=== PATIENT | female | born 1980 | race Caucasian/White ===

== ENCOUNTER 2018-12-13 11:06 | Emergency (ER) | payer SELFPAY ==
--- NOTE | 2018-12-13 11:57 | Emergency Department Report ---
Blank Doc - Documentation Documentation: This is a 38-year-old female that presents with abdominal pain with nausea vom iting x1 day. Stated is diffuse. This initial assessment diagnostic orders/clinical plan/treatment(s) is/are subject to change based on patient's health status, clinical progression and re-assessment by fellow clinical providers in the ED. Further treatment and workup at subsequent clinical providers discretion. Patient/guardians urged not to elope from ED s their condition may be serious if not clinically assessed and managed. Initial orders include: 1-Patient sent to [facility] for further evaluation and treatment 2- Labs 3- UA
[2018-12-13] MEDS ORDERED: ZOFRAN IV ONE (12:22)
[2018-12-13] MEDS ORDERED: NACL 0.9% 1000 ML 1,000 ML IV ONE (12:22)
[2018-12-13] MEDS ORDERED: TYLENOL PO ONE (12:23)
--- NOTE | 2018-12-13 12:30 | Emergency Department Report ---
HPI <JOIE MITCHELL - Last Filed: 12/13/18 18:33> - HPI HPI: 38-year-old female presents to the emergency department with a complaint of a one-day history of generalized abdominal pain, nausea, vomiting and a headache. She denies any fever, dysuria, vaginal bleeding or discharge. She has not taken anything for her symptoms prior to presentation. She went to a urgent care clinic this morning and was told to come to the emergency department. No past medical history. No recent travel or sick contacts at home. <LESIA CONWAY S - Last Filed: 12/14/18 16:10> - General Chief Complaint: Abdominal Pain Time Seen by Provider: 12/13/18 11:55 ED Past Medical Hx <PAULAJOIE - Last Filed: 12/13/18 18:33> - Past Medical History Previous Medical History?: No - Surgical History Past Surgical History?: Yes Additional Surgical History: x 3 - Social History Smoking Status: Never Smoker Substance Use Type: None <LESIA CONWAY - Last Filed: 12/14/18 16:10> - Medications Home Medications: Home Medications Medication Instructions Recorded Confirmed Last Taken Type Amoxicillin [Amoxicillin TAB] 875 mg PO BID 10 Days tablet 01/02/14 Unknown Rx HYDROcodone/APAP 5-325 [[place] 1 each PO Q6HR PRN #10 tablet 01/02/14 Unknown Rx 5-325 mg TAB] Ketorolac [Toradol] 10 mg PO Q6H PRN #10 tablet 12/13/18 Unknown Rx Nitrofurantoin Monohyd/M-Cryst 100 mg PO BID #14 capsule 12/13/18 Unknown Rx [Macrobid 100 mg Capsule] Ondansetron [Zofran Odt] 4 mg PO Q8HR PRN #12 tab.rapdis 12/13/18 Unknown Rx ED Review of Systems ROS: Stated complaint: N/V Other details as noted in HPI <PAULARANDMACRINA - Last Filed: 12/13/18 18:33> ROS: Stated complaint: N/V Other details as noted in HPI Comment: All other systems reviewed and negative Constitutional: denies: chills, fever Eyes: denies: eye pain, vision change ENT: denies: ear pain, throat pain Respiratory: denies: cough, shortness of breath Cardiovascular: denies: chest pain, palpitations Gastrointestinal: abdominal pain, nausea, vomiting Genitourinary: denies: dysuria, discharge Musculoskeletal: denies: back pain, arthralgia Skin: denies: rash, lesions Neurological: headache. denies: weakness, numbness, paresthesias <LESIA CONWAY - Last Filed: 12/14/18 16:10> Physical Exam - Physical Exam Vital Signs: Vital Signs 12/13/18 11:56 Temperature 98.3 F Pulse Rate 77 Respiratory 18 Rate Blood Pressure 119/50 O2 Sat by Pulse 97 Oximetry <JOIE MITCHELL - Last Filed: 12/13/18 18:33> - Physical Exam Vital Signs: Vital Signs 12/13/18 11:56 Temperature 98.3 F Pulse Rate 77 Respiratory 18 Rate Blood Pressure 119/50 O2 Sat by Pulse 97 Oximetry Physical Exam: GENERAL: The patient is well-developed well-nourished. HEENT: Normocephalic. Atraumatic. Patient has moist mucous membranes. EYES: Extraocular motions are intact. Pupils are equal and reactive to light bilaterally. No nystagmus. NECK: Supple. Trachea is midline. CHEST/LUNGS: Clear to auscultation. There is no respiratory distress noted. HEART/CARDIOVASCULAR: Regular. There is no tachycardia. There is no obvious murmur. ABDOMEN: Abdomen is soft. Generalized tenderness to palpation of the abdomen. No guarding. Patient has normal bowel sounds. There is no abdominal distention. SKIN: Skin is warm and dry. NEURO: The patient is awake, alert, and oriented. The patient is cooperative. The patient has no focal neurologic deficits. The patient has normal speech. Cranial nerves II through XII grossly intact. MUSCULOSKELETAL: There is no tenderness or deformity. There is no limitation range of motion. There is no evidence of acute injury. <LESIA CONWAY - Last Filed: 12/14/18 16:10> ED Course Vital Signs 12/13/18 11:56 Temperature 98.3 F Pulse Rate 77 Respiratory 18 Rate Blood Pressure 119/50 O2 Sat by Pulse 97 Oximetry <JOIE MITCHELL - Last Filed: 12/13/18 18:33> Vital Signs 12/13/18 11:56 Temperature 98.3 F Pulse Rate 77 Respiratory 18 Rate Blood Pressure 119/50 O2 Sat by Pulse 97 Oximetry <SHEAR,LESIA S - Last Filed: 12/14/18 16:10> ED Medical Decision Making - Lab Data Result diagrams: 12/13/18 13:32 12/13/18 13:32 - Radiology Data Radiology results: report reviewed (CT scan of the head shows possible prior myelomatous disease process. No acute process noted. No acute processes noted to the abdomen as well as a CT scan.) - Medical Decision Making 30-year-old female with headache seen by Dr. blank. Follow-up CT scan of the head and abdomen to ensure there is no processes is warranted treatment, which does scans were negative. The Conclusion of urinary tract infections need to repeat treated which she did order some Macrobid to cover. We'll give her Toradol for her headache pain and have her follow up with primary care/internal medicine for further evaluation and treatment recommendations for her headache and at abdominal ache <JOIE MITCHELL - Last Filed: 12/13/18 18:33> - Lab Data Result diagrams: 12/13/18 13:32 12/13/18 13:32 - Radiology Data Radiology results: report reviewed PROCEDURE: CT abdomen and pelvis with contrast. TECHNIQUE: Computerized axial tomography of the abdomen and pelvis was performed after the IV injection of iodinated nonionic contrast. HISTORY: Abdominal pain. COMPARISON: No prior studies are available for comparison. FINDINGS: The lung bases are clear. There are no pleural effusions. The heart size is normal. The liver, pancreas and spleen appear normal. The gallbladder is present. There is no biliary dilatation. The adrenal glands are not enlarged. There is no right-sided kidney. The left kidney is enlarged and appears to be a fusion of the left and right kidneys. 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 The abdominal aorta has a normal caliber. There is no retroperitoneal adenopathy. The gastrointestinal tract is unremarkable. A normal appendix is visible. The bladder, uterus and adnexal regions appear normal. The regional skeleton appears intact. There is a moderately severe thoracolumbar scoliosis. The left hip joint appears hypoplastic and is located in a more superior location than usual. This may be the result of a congenital condition or possibly previous trauma. IMPRESSION: Left-sided crossed fused renal ectopia. Thoracolumbar scoliosis. Hypoplastic malpositioned left hip joint. No evidence of acute disease in the abdomen or pelvis. Transcribed By: SHAWN Dictated By: JOSHUA TAVARES MD Electronically Authenticated By: JOSHUA TAVARES MD Signed Date/Time: 12/13/181747 PROCEDURE: CT head without contrast. TECHNIQUE: Computerized tomography of the head was performed without contrast material. HISTORY: Headache. COMPARISON: No prior studies are available for comparison. FINDINGS: The ventricles are normal in size. There are some scattered calcifications within the frost matter and white matter. This could represent previous granulomatous infection. There are no mass lesions. There is no intracranial hemorrhage. The calvarium appears intact. The mastoid air cells and visualized paranasal sinuses are clear. IMPRESSION: Possible previous granulomatous disease. Otherwise normal study of the brain. Transcribed By: SHAWN Dictated By: JOSHUA TAVARES MD Electronically Authenticated By: JOSHUA TAVARES MD Signed Date/Time: 12/13/181756 - Medical Decision Making She came in with a complaint of abdominal pain and a headache. Other than a mild urinary tract infection, the labs were mostly unremarkable. Vital signs stable throughout her ED course. CT scan of the head did not show any bleed, shift, mass, ischemia or any other acute processes. CT of the abdomen and pelvis also did not show any acute process. Patient was given Macrobid for the urinary tract infection. She was given some pain relief within the emergency department and a prescription for home. She will follow up with the primary care physician and return to the ER with any worsening of her symptoms or any acute distress. - Differential Diagnosis tension headache, migraine, colitis, diverticulitis <LESIA CONWAY - Last Filed: 12/14/18 16:10> Critical care attestation.: If time is entered above; I have spent that time in minutes in the direct care o f this critically ill patient, excluding procedure time. <JOIE MITCHELL - Last Filed: 12/13/18 18:33> Critical Care Time: No Critical care attestation.: If time is entered above; I have spent that time in minutes in the direct care of this critically ill patient, excluding procedure time. <LESIA CONWAY - Last Filed: 12/14/18 16:10> ED Disposition Is pt being admited?: No Does the pt Need Aspirin: No <JOIE MITCHELL - Last Filed: 02/21/19 18:33> Is pt being admited?: No <LESIA CONWAY S - Last Filed: 12/14/18 16:10> Clinical Impression: Abdominal pain Qualifiers: Abdominal location: generalized Qualified Code(s): R10.84 - Generalized abdominal pain Headache Qualifiers: Headache type: unspecified Headache chronicity pattern: unspecified pattern Intractability: not intractable Qualified Code(s): R51 - Headache Disposition: DC-01 TO HOME OR SELFCARE Condition: Stable Instructions: Acute Headache (ED), Abdominal Pain (ED) Prescriptions: Ketorolac [Toradol] 10 mg PO Q6H PRN #10 tablet PRN Reason: Pain Nitrofurantoin Monohyd/M-Cryst [Macrobid 100 mg Capsule] 100 mg PO BID #14 capsule Ondansetron [Zofran Odt] 4 mg PO Q8HR PRN #12 tab.rapdis PRN Reason: Nausea Referrals: PRIMARY CARE, [Referring] - 3-5 Days [facility] [Provider Group] - 3-5 Days Print Language: SLOVENIAN
[2018-12-13 14:00] LABS: Bilirubin,Urine NEG (Negative); Blood,Urine NEG (Negative); Color,Urine Yellow (Yellow); Mucus,Urine 1+ /HPF; Protein,Urine <15 mg/dL mg/dL (Negative); Urobilinogen,Urine < 2.0 mg/dL (<2.0)
[2018-12-13] MEDS ORDERED: MACROBID PO ONE (14:05)
[2018-12-13 14:06] LABS: Alanine Aminotransferase 15 units/L (7-56); Albumin 3.9 g/dL (3.9-5); BUN/Creatinine Ratio 43; Basophils % (Auto) 0.2 % (0.0-1.8); Blood Urea Nitrogen 13 mg/dL (7-17); Eosinophils # (Auto) 0.1 K/mm3 (0.0-0.4); Eosinophils % (Auto) 0.5 % (0.0-4.3); Hematocrit 36.1 % (30.3-42.9); Hemoglobin 11.9 gm/dl (10.1-14.3); Hemolysis Index 5; Lymphocytes # (Auto) 1.5 K/mm3 (1.2-5.4); Lymphocytes % (Auto) 14.8 % (13.4-35.0); Mean Corpuscular HGB Conc 33 % (30-34); Mean Corpuscular Volume 86 fl (79-97); Monocytes # (Auto) 0.5 K/mm3 (0.0-0.8); Monocytes % (Auto) 4.6 % (0.0-7.3); Platelet Count 284 K/mm3 (140-440); Red Cell Distribution Width 14.6 % (13.2-15.2)
[2018-12-13] MEDS ORDERED: MORPHINE IV ONE (14:19)
--- NOTE | 2018-12-13 17:48 | Cat Scan Report ---
FINAL REPORT PROCEDURE: CT abdomen and pelvis with contrast. TECHNIQUE: Computerized axial tomography of the abdomen and pelvis was performed after the IV inject ion of iodinated nonionic contrast. HISTORY: Abdominal pain. COMPARISON: No prior studies are available for comparison. FINDINGS: The lung bases are clear. There are no pleural effusions. The heart size is normal. The liver, pancre as and spleen appear normal. The gallbladder is present. There is no biliary dilatation. The adrenal glands are not enlarged. There is no right-sided kidney. The left kidney is enlarged and appears to b e a fusion of the left and right kidneys. The findings are consistent with crossed fused renal ectopi a. The abdominal aorta has a normal caliber. There is no retroperitoneal adenopathy. The gastrointest inal tract is unremarkable. A normal appendix is visible. The bladder, uterus and adnexal regions rikki ear normal. The regional skeleton appears intact. There is a moderately severe thoracolumbar scoliosi s. The left hip joint appears hypoplastic and is located in a more superior location than usual. This may be the result of a congenital condition or possibly previous trauma. IMPRESSION: Left-sided crossed fused renal ectopia. Thoracolumbar scoliosis. Hypoplastic malpositioned left hip j oint. No evidence of acute disease in the abdomen or pelvis.
--- NOTE | 2018-12-13 17:57 | Cat Scan Report ---
FINAL REPORT PROCEDURE: CT head without contrast. TECHNIQUE: Computerized tomography of the head was performed without contrast material. HISTORY: Headache. COMPARISON: No prior studies are available for comparison. FINDINGS: The ventricles are normal in size. There are some scattered calcifications within the frost matter and white matter. This could represent previous granulomatous infection. There are no mass lesions. Ther e is no intracranial hemorrhage. The calvarium appears intact. The mastoid air cells and visualized p aranasal sinuses are clear. IMPRESSION: Possible previous granulomatous disease. Otherwise normal study of the brain.
[2018-12-13 19:19] VITALS: BP 122/78
== END 2018-12-13 19:15 | disposition home or self-care (01) ==
LOC: ED 11:06
DX: R10.84 Generalized abdominal pain (principal); R11.2 Nausea with vomiting, unspecified
CPT/HCPCS: 36415; 70450; 74177; 80053; 81001; 83690; 84703; 85025; 96361; 96374; 96375; 99284; J2270; J2405; J7030; Q9967

== ENCOUNTER 2018-12-30 05:33 | Emergency (ER) | payer OTHER ==
[2018-12-30] MEDS ORDERED: NORCO 10/325 PO ONE (07:47)
[2018-12-30 08:23] VITALS: BP 103/60
--- NOTE | 2018-12-30 08:31 | Emergency Department Report ---
ED Lower Extremity HPI - General Chief Complaint: Extremity Injury, Lower Stated Complaint: FELL HAVING PAIN Time Seen by Provider: 12/30/18 07:30 Source: patient Mode of arrival: Ambulatory Limitations: No Limitations - History of Present Illness Initial Comments: This is a 38-year-old female nontoxic, well nourished in appearance, no acute signs of distress presents to the ED with c/o of left ankle pain 1 day. Patient stated that she twisted her ankle this morning. Patient denies any other trauma. Patient denies any numbness, tingling, fever, chills, nausea, vomiting, chest pain, shortness of breath, headache, stiff neck. Patient denies any joint swelling or joint redness. Patient denies decreased range of motion. Patient stated has decreased gait due to pain. Patient denies any allergies or significant past medical history. Patients family is present at bedside for translation purpose. MD Complaint: leg injury, ankle injury -: days(s) (1) Injury: Ankle: Left Type of Injury: inversion Place: street/outdoors Severity: mild Severity scale (0 -10): 8 Improves With: immobilization Worsens With: movement Associated Symptoms: swelling, able to partially bear weight, ambulatory. de nies: snap/pop sensation, numbness, tingling, unable to bear weight - Related Data Previous Rx's Medication Instructions Recorded Last Taken Type Amoxicillin [Amoxicillin TAB] 875 mg PO BID 10 Days tablet 01/02/14 Unknown Rx HYDROcodone/APAP 5-325 [[place] 1 each PO Q6HR PRN #10 tablet 01/02/14 Unknown Rx 5-325 mg TAB] Ketorolac [Toradol] 10 mg PO Q6H PRN #10 tablet 12/13/18 Unknown Rx Nitrofurantoin Monohyd/M-Cryst 100 mg PO BID #14 capsule 12/13/18 Unknown Rx [Macrobid 100 mg Capsule] Ondansetron [Zofran Odt] 4 mg PO Q8HR PRN #12 tab.rapdis 12/13/18 Unknown Rx Ibuprofen [Motrin] 600 mg PO Q8H PRN #20 tablet 12/30/18 Unknown Rx Allergies Allergy/AdvReac Type Severity Reaction Status Date / Time No Known Allergies Allergy Verified 12/13/18 11:19 ED Review of Systems ROS: Stated complaint: FELL HAVING PAIN Other details as noted in HPI Constitutional: denies: chills, fever Eyes: denies: eye pain, eye discharge, vision change ENT: denies: ear pain, throat pain Respiratory: denies: cough, shortness of breath, wheezing Cardiovascular: denies: chest pain, palpitations Endocrine: no symptoms reported Gastrointestinal: denies: abdominal pain, nausea, diarrhea Genitourinary: denies: urgency, dysuria, discharge Musculoskeletal: denies: back pain, joint swelling, arthralgia Skin: denies: rash, lesions Neurological: denies: headache, weakness, paresthesias Psychiatric: denies: anxiety, depression Hematological/Lymphatic: denies: easy bleeding, easy bruising ED Past Medical Hx - Past Medical History Previous Medical History?: No - Surgical History Past Surgical History?: Yes Additional Surgical History: x 3, tubaligation - Social History Smoking Status: Never Smoker Substance Use Type: None - Medications Home Medications: Home Medications Medication Instructions Recorded Confirmed Last Taken Type Amoxicillin [Amoxicillin TAB] 875 mg PO BID 10 Days tablet 01/02/14 Unknown Rx HYDROcodone/APAP 5-325 [[place] 1 each PO Q6HR PRN #10 tablet 01/02/14 Unknown Rx 5-325 mg TAB] Ketorolac [Toradol] 10 mg PO Q6H PRN #10 tablet 12/13/18 Unknown Rx Nitrofurantoin Monohyd/M-Cryst 100 mg PO BID #14 capsule 12/13/18 Unknown Rx [Macrobid 100 mg Capsule] Ondansetron [Zofran Odt] 4 mg PO Q8HR PRN #12 tab.rapdis 12/13/18 Unknown Rx Ibuprofen [Motrin] 600 mg PO Q8H PRN #20 tablet 12/30/18 Unknown Rx ED Physical Exam - General Limitations: No Limitations General appearance: alert, in no apparent distress - Head Head exam: Present: atraumatic, normocephalic - Extremities Exam Extremities exam: Present: full ROM, tenderness, normal capillary refill. Absent: joint swelling - Expanded Lower Extremity Exam Left Hip exam: Present: normal inspection, full ROM. Absent: tenderness Upper Leg exam: Present: normal inspection, full ROM. Absent: tenderness Knee exam: Present: normal inspection, full ROM. Absent: tenderness Lower Leg exam: Present: normal inspection, full ROM, tenderness, ecchymosis. Absent: swelling, abrasion, laceration, deformity, crepidus, dislocation, erythema, palpable cord, Mable's sign Ankle exam: Present: normal inspection, full ROM, tenderness, swelling, ecchymosis. Absent: abrasion, laceration, deformity, crepidus, dislocation, erythema, anterior draw sign Foot/Toe exam: Present: normal inspection, full ROM. Absent: tenderness, swelling Neuro vascular tendon exam: Present: no vascular compromise Gait: Positive: observed and limited by pain 1 - pain here 2 - pain here - Back Exam Back exam: Present: normal inspection, full ROM. Absent: tenderness, CVA tenderness (R), CVA tenderness (L), muscle spasm, paraspinal tenderness, vertebral tenderness, rash noted - Neurological Exam Neurological exam: Present: alert, oriented X3 - Psychiatric Psychiatric exam: Present: normal affect, normal mood - Skin Skin exam: Present: warm, dry, intact, normal color. Absent: rash ED Course Vital Signs 12/30/18 08:22 Temperature 97.4 F L Pulse Rate 71 Respiratory 18 Rate Blood Pressure 103/60 [Left] O2 Sat by Pulse 98 Oximetry Vital Signs 12/30/18 08:22 Temperature 97.4 F L Pulse Rate 71 Respiratory 18 Rate Blood Pressure 103/60 [Left] O2 Sat by Pulse 98 Oximetry - Reevaluation(s) Reevaluation #1: 12/30/18 08:38 Patient is speaking in full sentences with no signs of distress noted. ED Lower Extremity MDM - Medical Decision Making This is a 38-year-old female that presents with left ankle sprain. Patient is stable and was examined by me. I referred patient to an orthopedic doctor for further evaluation for possible MRI. X-ray has been obtained and dictated by the radiologist. Patient is notified of the x-ray report with noted by the patient. Patient some decreased gait with no joint swelling. No joint redness or swelling. Not warm to touch. No signs of cellulites present. Patient received ankle stirrup and crutches. Patient was instructed to RICE therapy. Patient received [place] for pain. Patients family stated will drive the patient home after discharge due to possible drowsiness. Patient is discharged with Motrin. At time of discharge, the patient does not seem toxic or ill in appearance. No acute signs of distress noted. Patient agrees to discharge treatment plan of care. No further questions noted by the patient. Critical care attestation.: If time is entered above; I have spent that time in minutes in the direct care o f this critically ill patient, excluding procedure time. ED Disposition Clinical Impression: Left ankle sprain Disposition: - TO HOME OR SELFCARE Is pt being admited?: No Does the pt Need Aspirin: No Condition: Stable Instructions: Ankle Sprain (ED), Ankle Stirrup Splint (ED), Crutch Instructions (ED), RICE Therapy (ED) Additional Instructions: Follow-up with a orthopedic doctor in 3-5 days or if symptoms worsen and continue return to emergency room as soon as possible. Prescriptions: Ibuprofen [Motrin] 600 mg PO Q8H PRN #20 tablet PRN Reason: Pain Referrals: CHUY JACK MD [Primary Care Provider] - 3-5 Days PRIMARY CAREMD [Referring] - 3-5 Days DARCY LITTLE MD [Staff Physician] - 3-5 Days [facility] [Outside] - 3-5 Days Forms: Work/School Release Form(ED) Print Language: UZBEK
--- NOTE | 2018-12-30 09:20 | XRay Report ---
PROCEDURE: XR TIBIA FIBULA 2V LT TECHNIQUE: Left tibia and fibula radiographs, 2 views. HISTORY: pain and swelling COMPARISONS: None currently available. FINDINGS: There is no acute fracture. There is no evidence for healing fracture. There is no acute dislocation. There is no cortical destruction to suggest osteomyelitis. There are no suspicious osseous lesions. There are no radiopaque foreign objects. IMPRESSION: * No acute osseous findings. This document is electronically signed by Amado Cochran MD., December 30 2018 09:17:55 AM ET
--- NOTE | 2018-12-30 09:20 | XRay Report ---
PROCEDURE: XR ANKLE 3+V LT TECHNIQUE: Left ankle radiograph, 3 views. HISTORY: Pain and swelling COMPARISONS: None currently available. FINDINGS: There is no acute fracture. There is no evidence for healing fracture. There is no acute dislocation. No significant arthrosis. Lateral soft tissue swelling. No significant joint effusion. There is no cortical destruction to suggest osteomyelitis. There are no suspicious osseous lesions. There are no radiopaque foreign objects. IMPRESSION: * No acute osseous findings. This document is electronically signed by Amado Cochran MD., December 30 2018 09:18:49 AM ET
== END 2018-12-30 10:24 | disposition home or self-care (01) ==
LOC: ED 05:33
DX: S93.402A Sprain of unspecified ligament of left ankle, initial encounter (principal); Z98.51 Tubal ligation status; X50.1XXA Overexertion from prolonged static or awkward postures, initial encounter; Y93.89 Activity, other specified; Y92.488 Other paved roadways as the place of occurrence of the external cause; Y99.8 Other external cause status

== ENCOUNTER 2019-07-24 07:36 | Emergency (ER) | payer SELFPAY ==
[2019-07-24] MEDS ORDERED: ASPIRIN 325 MG TAB PO ONE (07:48)
[2019-07-24] MEDS ORDERED: KETOROLAC 30 MG/1 ML INJ IV ONE (08:18)
[2019-07-24] MEDS ORDERED: SODIUM CHLORIDE 0.9% 1000 ML 1,000 ML IV ONE (08:18)
[2019-07-24] MEDS ORDERED: FAMOTIDINE 20 MG/2 ML INJ IV ONE (08:18)
[2019-07-24] MEDS ORDERED: ONDANSETRON 4 MG/2 ML INJ IV ONE (08:18)
--- NOTE | 2019-07-24 08:37 | Emergency Department Report ---
ED Abdominal Pain HPI - General Chief Complaint: Chest Pain Stated Complaint: LT SIDE PAIN/HEADACHE Time Seen by Provider: 07/24/19 08:17 Source: patient Mode of arrival: Ambulatory Limitations: No Limitations - History of Present Illness Initial Comments: Patient is a 38-year-old female who is presenting with epigastric pain. Pain is been present for the past 3 days she's had multiple episodes of nausea and vomiting. Pain is worse with eating even small amounts of food. Patient states that the pain does at times radiate into the chest. Patient has associated headache but denies fevers chills cough, congestion or sore throat or diarrhea. Patient has no significant past medical history. - Related Data Previous Rx's Medication Instructions Recorded Last Taken Type Amoxicillin [Amoxicillin TAB] 875 mg PO BID 10 Days tablet 01/02/14 Unknown Rx HYDROcodone/APAP 5-325 [[place] 1 each PO Q6HR PRN #10 tablet 01/02/14 Unknown Rx 5-325 mg TAB] Ketorolac [Toradol] 10 mg PO Q6H PRN #10 tablet 12/13/18 Unknown Rx Nitrofurantoin Monohyd/M-Cryst 100 mg PO BID #14 capsule 12/13/18 Unknown Rx [Macrobid 100 mg Capsule] Ondansetron [Zofran Odt] 4 mg PO Q8HR PRN #12 tab.rapdis 12/13/18 Unknown Rx Ibuprofen [Motrin] 600 mg PO Q8H PRN #20 tablet 12/30/18 Unknown Rx Dicyclomine [Bentyl] 20 mg PO QID #10 tablet 07/24/19 Unknown Rx Famotidine [Pepcid] 20 mg PO BID #20 tablet 07/24/19 Unknown Rx HYDROcodone/APAP 5-325 [[place] 1 each PO Q6HR PRN #14 tablet 07/24/19 Unknown Rx 5/325] Ondansetron [Zofran Odt] 4 mg PO Q8HR #10 tab.rapdis 07/24/19 Unknown Rx Allergies Allergy/AdvReac Type Severity Reaction Status Date / Time No Known Allergies Allergy Verified 12/13/18 11:19 ED Review of Systems ROS: Stated complaint: LT SIDE PAIN/HEADACHE Other details as noted in HPI Comment: All other systems reviewed and negative ED Past Medical Hx - Past Medical History Previous Medical History?: No - Surgical History Past Surgical History?: No Additional Surgical History: x 3, tubaligation - Social History Smoking Status: Never Smoker Substance Use Type: None - Medications Home Medications: Home Medications Medication Instructions Recorded Confirmed Last Taken Type Amoxicillin [Amoxicillin TAB] 875 mg PO BID 10 Days tablet 01/02/14 Unknown Rx HYDROcodone/APAP 5-325 [[place] 1 each PO Q6HR PRN #10 tablet 01/02/14 Unknown Rx 5-325 mg TAB] Ketorolac [Toradol] 10 mg PO Q6H PRN #10 tablet 12/13/18 Unknown Rx Nitrofurantoin Monohyd/M-Cryst 100 mg PO BID #14 capsule 12/13/18 Unknown Rx [Macrobid 100 mg Capsule] Ondansetron [Zofran Odt] 4 mg PO Q8HR PRN #12 tab.rapdis 12/13/18 Unknown Rx Ibuprofen [Motrin] 600 mg PO Q8H PRN #20 tablet 12/30/18 Unknown Rx Dicyclomine [Bentyl] 20 mg PO QID #10 tablet 07/24/19 Unknown Rx Famotidine [Pepcid] 20 mg PO BID #20 tablet 07/24/19 Unknown Rx HYDROcodone/APAP 5-325 [[place] 1 each PO Q6HR PRN #14 tablet 07/24/19 Unknown Rx 5/325] Ondansetron [Zofran Odt] 4 mg PO Q8HR #10 tab.rapdis 07/24/19 Unknown Rx ED Physical Exam - General Limitations: No Limitations General appearance: alert, in no apparent distress - Head Head exam: Present: atraumatic, normocephalic - Eye Eye exam: Present: normal appearance - ENT ENT exam: Present: mucous membranes moist - Neck Neck exam: Present: normal inspection - Respiratory Respiratory exam: Present: normal lung sounds bilaterally. Absent: respiratory distress, wheezes, rales, rhonchi - Cardiovascular Cardiovascular Exam: Present: regular rate, normal rhythm. Absent: systolic murmur, diastolic murmur, rubs, gallop - GI/Abdominal GI/Abdominal exam: Present: soft, tenderness (epigastric), normal bowel sounds. Absent: distended, guarding, rebound, rigid - Extremities Exam Extremities exam: Present: normal inspection - Back Exam Back exam: Present: normal inspection - Neurological Exam Neurological exam: Present: alert, oriented X3 - Psychiatric Psychiatric exam: Present: normal affect, normal mood - Skin Skin exam: Present: warm, dry, intact, normal color. Absent: rash ED Course Vital Signs 07/24/19 09:45 Respiratory 16 Rate ED Medical Decision Making - Lab Data Result diagrams: 07/24/19 08:04 07/24/19 Unknown Lab Results 07/24/19 07/24/19 07/24/19 Range/Units 08:04 08:04 10:02 WBC 6.0 (4.5-11.0) K/mm3 RBC 4.27 (3.65-5.03) M/mm3 Hgb 12.6 (10.1-14.3) gm/dl Hct 36.8 (30.3-42.9) % MCV 86 (79-97) fl MCH 30 (28-32) pg MCHC 34 (30-34) % RDW 14.0 (13.2-15.2) % Plt Count 281 (140-440) K/mm3 Lymph % (Auto) 34.7 (13.4-35.0) % [place] % (Auto) 8.4 H (0.0-7.3) % Eos % (Auto) 2.1 (0.0-4.3) % Baso % (Auto) 0.4 (0.0-1.8) % Lymph # 2.1 (1.2-5.4) K/mm3 [place] # 0.5 (0.0-0.8) K/mm3 Eos # 0.1 (0.0-0.4) K/mm3 Baso # 0.0 (0.0-0.1) K/mm3 Seg Neutrophils % 54.4 (40.0-70.0) % Seg Neutrophils # 3.3 (1.8-7.7) K/mm3 Sodium (137-145) mmol/L Potassium (3.6-5.0) mmol/L Chloride (98-107) mmol/L Carbon Dioxide (22-30) mmol/L Anion Gap mmol/L BUN (7-17) mg/dL Creatinine (0.7-1.2) mg/dL Estimated GFR ml/min BUN/Creatinine Ratio % Glucose (65-100) mg/dL Calcium (8.4-10.2) mg/dL Total Bilirubin (0.1-1.2) mg/dL AST (5-40) units/L ALT (7-56) units/L Alkaline Phosphatase (35-129) units/L Troponin T < 0.010 (0.00-0.029) ng/mL Total Protein (6.3-8.2) g/dL Albumin (3.9-5) g/dL Albumin/Globulin Ratio % Lipase (13-60) units/L Urine Color Straw (Yellow) Urine Turbidity Clear (Clear) Urine pH 7.0 (5.0-7.0) Ur Specific [place] 1.011 (1.003-1.030) Urine Protein <15 mg/dl (Negative) mg/dL Urine Glucose (UA) Neg (Negative) mg/dL Urine Ketones Neg (Negative) mg/dL Urine Blood Neg (Negative) Urine Nitrite Neg (Negative) Urine Bilirubin Neg (Negative) Urine Urobilinogen < 2.0 (<2.0) mg/dL Ur Leukocyte Esterase Tr (Negative) Urine WBC (Auto) 2.0 (0.0-6.0) /HPF Urine RBC (Auto) < 1.0 (0.0-6.0) /HPF U Epithel Cells (Auto) 4.0 (0-13.0) /HPF Urine Mucus Few /HPF 07/24/19 Range/Units Unknown WBC (4.5-11.0) K/mm3 RBC (3.65-5.03) M/mm3 Hgb (10.1-14.3) gm/dl Hct (30.3-42.9) % MCV (79-97) fl MCH (28-32) pg MCHC (30-34) % RDW (13.2-15.2) % Plt Count (140-440) K/mm3 Lymph % (Auto) (13.4-35.0) % [place] % (Auto) (0.0-7.3) % Eos % (Auto) (0.0-4.3) % Baso % (Auto) (0.0-1.8) % Lymph # (1.2-5.4) K/mm3 [place] # (0.0-0.8) K/mm3 Eos # (0.0-0.4) K/mm3 Baso # (0.0-0.1) K/mm3 Seg Neutrophils % (40.0-70.0) % Seg Neutrophils # (1.8-7.7) K/mm3 Sodium 137 (137-145) mmol/L Potassium 4.3 (3.6-5.0) mmol/L Chloride 102.8 (98-107) mmol/L Carbon Dioxide 22 (22-30) mmol/L Anion Gap 17 mmol/L BUN 15 (7-17) mg/dL Creatinine 0.4 L (0.7-1.2) mg/dL Estimated GFR > 60 ml/min BUN/Creatinine Ratio 38 % Glucose 94 (65-100) mg/dL Calcium 8.5 (8.4-10.2) mg/dL Total Bilirubin 0.60 (0.1-1.2) mg/dL AST 15 (5-40) units/L ALT 12 (7-56) units/L Alkaline Phosphatase 80 (35-129) units/L Troponin T (0.00-0.029) ng/mL Total Protein 7.5 (6.3-8.2) g/dL Albumin 4.3 (3.9-5) g/dL Albumin/Globulin Ratio 1.3 % Lipase 30 (13-60) units/L Urine Color (Yellow) Urine Turbidity (Clear) Urine pH (5.0-7.0) Ur Specific [place] (1.003-1.030) Urine Protein (Negative) mg/dL Urine Glucose (UA) (Negative) mg/dL Urine Ketones (Negative) mg/dL Urine Blood (Negative) Urine Nitrite (Negative) Urine Bilirubin (Negative) Urine Urobilinogen (<2.0) mg/dL Ur Leukocyte Esterase (Negative) Urine WBC (Auto) (0.0-6.0) /HPF Urine RBC (Auto) (0.0-6.0) /HPF U Epithel Cells (Auto) (0-13.0) /HPF Urine Mucus /HPF - Radiology Data [facility] [address] [place] [address] Ultrasound Report Signed Patient: LYNSEY CRUZ MR#: [id number] : 1980 Acct:[id number] Age/Sex: 38 / F ADM Date: 07/24/19 Loc: ED Attending Dr: Ordering Physician: SAIGE WHITE MD Date of Service: 07/24/19 Procedure(s): US abdomen limited Accession Number(s): [id number] cc: SAIGE WHITE MD LIMITED RUQ ABDOMINAL ULTRASOUND INDICATION: Epigastric pain. COMPARISON: No relevant prior imaging study available. FINDINGS: Pancreas: Visualized portions show no significant abnormality. Abdominal Aorta: No significant abnormality. IVC: No significant abnormality. Liver: The liver measures 12.0 cm in length. No significant abnormality. Normal hepatopedal blood flow in the main portal vein. Gallbladder: There is a mild degree of sludge in the gallbladder. No shadowing gallstones, gallbladder distention or gallbladder wall thickening.. Bile ducts: No significant abnormality. Common bile duct measures 2.8 mm. Right kidney: Obscured by bowel gas. Free fluid: None. Additional Findings: None. IMPRESSION: Mild degree of sludge in the gallbladder. No findings to suggest acute cholecystitis.. Signer Name: Wei Mott Jr, MD Signed: 07/24/2019 9:35 AM Workstation Name: [id number] Transcribed By: TTR Dictated By: WEI MOTT JR, MD Electronically Authenticated By: WEI MOTT JR, MD Signed Date/Time: 07/24/19934 DD/ 3 TD/TT: - Medical Decision Making Patient was hydrated and given medications for nausea and pain. Nausea improved initially but pain was still present the patient was given a dose of morphine which did help. The patient diagnosed with some gallbladder sludge which likely is the cause of her pain patient will be referred to general surgery for consultation regarding possible cholecystectomy. There is no evidence of cholecystitis at this time. Critical care attestation.: If time is entered above; I have spent that time in minutes in the direct care of this critically ill patient, excluding procedure time. ED Disposition Clinical Impression: Biliary colic Disposition: DC-01 TO HOME OR SELFCARE Is pt being admited?: No Does the pt Need Aspirin: No Condition: Stable Instructions: Biliary Colic (ED), Acute Nausea and Vomiting (ED), Low Fat Diet (ED) Time of Disposition: 11:31 Print Language: MICRONESIAN
[2019-07-24 08:41] LABS: Basophils % (Auto) 0.4 % (0.0-1.8); Eosinophils # (Auto) 0.1 K/mm3 (0.0-0.4); Eosinophils % (Auto) 2.1 % (0.0-4.3); Hematocrit 36.8 % (30.3-42.9); Hemoglobin 12.6 gm/dl (10.1-14.3); Lymphocytes # (Auto) 2.1 K/mm3 (1.2-5.4); Lymphocytes % (Auto) 34.7 % (13.4-35.0); Mean Corpuscular HGB Conc 34 % (30-34); Mean Corpuscular Volume 86 fl (79-97); Monocytes # (Auto) 0.5 K/mm3 (0.0-0.8); Monocytes % (Auto) 8.4 % (0.0-7.3); Platelet Count 281 K/mm3 (140-440); Red Blood Count 4.27 M/mm3 (3.65-5.03)
[2019-07-24 08:45] LABS: Alanine Aminotransferase 12 units/L (7-56); Albumin 4.3 g/dL (3.9-5); BUN/Creatinine Ratio 38; Blood Urea Nitrogen 15 mg/dL (7-17); Calcium 8.5 mg/dL (8.4-10.2); Hemolysis Index 2
--- NOTE | 2019-07-24 09:40 | Ultrasound Report ---
LIMITED RUQ ABDOMINAL ULTRASOUND INDICATION: Epigastric pain. COMPARISON: No relevant prior imaging study available. FINDINGS: Pancreas: Visualized portions show no significant abnormality. Abdominal Aorta: No significant abnormality. IVC: No significant abnormality. Liver: The liver measures 12.0 cm in length. No significant abnormality. Normal hepatopedal blood fl ow in the main portal vein. Gallbladder: There is a mild degree of sludge in the gallbladder. No shadowing gallstones, gallbladde r distention or gallbladder wall thickening.. Bile ducts: No significant abnormality. Common bile duct measures 2.8 mm. Right kidney: Obscured by bowel gas. Free fluid: None. Additional Findings: None. IMPRESSION: Mild degree of sludge in the gallbladder. No findings to suggest acute cholecystitis.. Signer Name: Wei Mott Jr, MD Signed: 07/24/2019 9:35 AM Workstation Name: [id number]
[2019-07-24 10:30] LABS: Bilirubin,Urine NEG (Negative); Blood,Urine NEG (Negative); Color,Urine Straw (Yellow); Mucus,Urine FEW /HPF; Protein,Urine <15 mg/dL mg/dL (Negative); RBC,Urine < 1.0 /HPF (0.0-6.0); Urobilinogen,Urine < 2.0 mg/dL (<2.0)
--- NOTE | 2019-07-24 11:11 | XRay Report ---
CHEST 1 VIEW INDICATION: Chest Pain. COMPARISON: none FINDINGS: Support devices: None. Heart: Within normal limits. Lungs/Pleura: No acute air space or interstitial disease. Additional findings: Scoliosis. IMPRESSION: No acute findings. Signer Name: Wei Mott Jr, MD Signed: 07/24/2019 11:07 AM Workstation Name: [id number]
[2019-07-24] MEDS ORDERED: MORPHINE 4 MG/1 ML INJ IV ONE (11:13)
[2019-07-24 11:53] VITALS: BP 105/35
== END 2019-07-24 11:50 | disposition home or self-care (01) ==
LOC: ED 07:36
DX: K80.50 Calculus of bile duct without cholangitis or cholecystitis without obstruction (principal); Z79.899 Other long term (current) drug therapy; Z79.1 Long term (current) use of non-steroidal anti-inflammatories (NSAID); Z98.51 Tubal ligation status
CPT/HCPCS: 36415; 71045; 76705; 80053; 81001; 83690; 84484; 85025; 87086; 93005; 93010; 96361; 96374; 96375; 99285; J1885; J2270; J2405; J7030

== ENCOUNTER 2019-08-08 20:55 | Emergency (ER) | payer SELFPAY ==
[2019-08-08] MEDS ORDERED: MORPHINE IV ONE (22:18)
[2019-08-08] MEDS ORDERED: ZOFRAN IV ONE (22:18)
[2019-08-08] MEDS ORDERED: NACL 0.9% 1000 ML 1,000 ML IV ONE (22:19)
--- NOTE | 2019-08-08 22:34 | Emergency Department Report ---
ED Chest Pain HPI - General Chief Complaint: Chest Pain Stated Complaint: CHEST PAIN Time Seen by Provider: 08/08/19 22:04 Source: patient, family Mode of arrival: Ambulatory Limitations: Language Barrier - History of Present Illness Initial Comments: 38-year-old female presents to the emergency department with a complaint of some upper abdominal pain with radiation into the chest that has been going on since July 24, about 2 weeks ago. She was seen here at that time for similar symptoms and was found to have cholelithiasis and biliary co lic. Her current symptoms are also associated with nausea and vomiting but she denies any fever. She has been taking [id number] pain medication for her symptoms without any relief. Eating certain foods appears to worsen her symptoms. No recent travel or sick contacts at home. She does not have a primary care physician. Severity scale (0 -10): 4 - Related Data Previous Rx's Medication Instructions Recorded Last Taken Type Amoxicillin [Amoxicillin TAB] 875 mg PO BID 10 Days tablet 01/02/14 Unknown Rx HYDROcodone/APAP 5-325 [[place] 1 each PO Q6HR PRN #10 tablet 01/02/14 Unknown Rx 5-325 mg TAB] Ketorolac [Toradol] 10 mg PO Q6H PRN #10 tablet 12/13/18 Unknown Rx Nitrofurantoin Monohyd/M-Cryst 100 mg PO BID #14 capsule 12/13/18 Unknown Rx [Macrobid 100 mg Capsule] Ibuprofen [Motrin] 600 mg PO Q8H PRN #20 tablet 12/30/18 Unknown Rx Dicyclomine [Bentyl] 20 mg PO QID #10 tablet 07/24/19 Unknown Rx Famotidine [Pepcid] 20 mg PO BID #20 tablet 07/24/19 Unknown Rx HYDROcodone/APAP 5-325 [[place] 1 each PO Q6HR PRN #14 tablet 07/24/19 Unknown Rx 5/325] Ondansetron [Zofran Odt] 4 mg PO Q8HR #10 tab.rapdis 07/24/19 Unknown Rx Famotidine [Pepcid] 20 mg PO BID #20 tablet 08/09/19 Unknown Rx Ondansetron [Zofran ODT TAB] 4 mg PO Q8HR PRN #14 tab.rapdis 08/09/19 Unknown Rx Allergies Allergy/AdvReac Type Severity Reaction Status Date / Time No Known Allergies Allergy Verified 12/13/18 11:19 Heart Score - HEART Score History: Slightly suspicious EKG: Normal Age: < 45 Risk factors: No known risk factors Troponin: < normal limit HEART Score: 0 ED Review of Systems ROS: Stated complaint: CHEST PAIN Other details as noted in HPI Comment: All other systems reviewed and negative Constitutional: denies: chills, fever Respiratory: denies: cough, shortness of breath Cardiovascular: chest pain. denies: palpitations Gastrointestinal: abdominal pain, nausea, vomiting Genitourinary: denies: dysuria, discharge Musculoskeletal: denies: back pain, arthralgia Skin: denies: rash, lesions Neurological: denies: headache, weakness ED Past Medical Hx - Past Medical History Previous Medical History?: No - Surgical History Past Surgical History?: No Additional Surgical History: x 3, tubaligation - Social History Smoking Status: Never Smoker Substance Use Type: None - Medications Home Medications: Home Medications Medication Instructions Recorded Confirmed Last Taken Type Amoxicillin [Amoxicillin TAB] 875 mg PO BID 10 Days tablet 01/02/14 Unknown Rx HYDROcodone/APAP 5-325 [[place] 1 each PO Q6HR PRN #10 tablet 01/02/14 Unknown Rx 5-325 mg TAB] Ketorolac [Toradol] 10 mg PO Q6H PRN #10 tablet 12/13/18 Unknown Rx Nitrofurantoin Monohyd/M-Cryst 100 mg PO BID #14 capsule 12/13/18 Unknown Rx [Macrobid 100 mg Capsule] Ibuprofen [Motrin] 600 mg PO Q8H PRN #20 tablet 12/30/18 Unknown Rx Dicyclomine [Bentyl] 20 mg PO QID #10 tablet 07/24/19 Unknown Rx Famotidine [Pepcid] 20 mg PO BID #20 tablet 07/24/19 Unknown Rx HYDROcodone/APAP 5-325 [[place] 1 each PO Q6HR PRN #14 tablet 07/24/19 Unknown Rx 5/325] Ondansetron [Zofran Odt] 4 mg PO Q8HR #10 tab.rapdis 07/24/19 Unknown Rx Famotidine [Pepcid] 20 mg PO BID #20 tablet 08/09/19 Unknown Rx Ondansetron [Zofran ODT TAB] 4 mg PO Q8HR PRN #14 tab.rapdis 08/09/19 Unknown Rx ED Physical Exam - General Limitations: Language Barrier - Other Other exam information: GENERAL: The patient is well-developed well-nourished. HENT: Normocephalic. Atraumatic. Patient has moist mucous membranes. EYES: Extraocular motions are intact. NECK: Supple. Trachea is midline. CHEST/LUNGS: Clear to auscultation. There is no respiratory distress noted. HEART/CARDIOVASCULAR: Regular. There is no tachycardia. There is no murmur. ABDOMEN: Abdomen is soft. There is right upper quadrant and epigastric tenderness to palpation. No guarding. Patient has normal bowel sounds. There is no abdominal distention. SKIN: Skin is warm and dry. NEURO: The patient is awake, alert, and oriented. The patient is cooperative. The patient has no focal neurologic deficits. Normal speech. MUSCULOSKELETAL: There is no tenderness or deformity. There is no evidence of acute injury. ED Course Vital Signs 08/08/19 08/08/19 08/08/19 21:42 21:46 22:00 Temperature 98.2 F Pulse Rate 52 L 53 L Respiratory 18 12 Rate Blood Pressure 126/67 O2 Sat by Pulse 99 99 Oximetry 08/08/19 08/08/19 08/08/19 22:30 22:37 23:00 Temperature Pulse Rate 54 L 52 L Respiratory 18 16 Rate Blood Pressure 119/69 119/69 O2 Sat by Pulse 98 97 Oximetry 08/08/19 08/08/19 08/09/19 23:07 23:30 00:06 Temperature Pulse Rate 49 L Respiratory 18 11 L Rate Blood Pressure 131/59 131/59 O2 Sat by Pulse 100 Oximetry 08/09/19 08/09/19 08/09/19 00:30 01:00 01:19 Temperature Pulse Rate 50 L 47 L Respiratory 12 12 16 Rate Blood Pressure 128/73 109/55 O2 Sat by Pulse 99 98 Oximetry 08/09/19 08/09/19 08/09/19 01:30 03:12 03:30 Temperature Pulse Rate 53 L Respiratory 13 Rate Blood Pressure 128/73 113/56 O2 Sat by Pulse 98 80 L 98 Oximetry RAUL score - Raul Score Age > 65: (0) No Aspirin use within the Past 7 Days: (0) No 3 or more CAD Risk Factors: (0) No 2 or more Angina events in past 24 hrs: (1) Yes Known CAD with more than 50% Stenosis: (0) No Elevated Cardiac Markers: (0) No ST Deviation Greater than 0.5mm: (0) No RAUL Score: 1 ED Medical Decision Making - Lab Data Result diagrams: 08/08/19 22:31 08/08/19 22:31 - EKG Data -: EKG Interpreted by Me EKG shows normal: sinus rhythm, axis, intervals, QRS complexes, ST-T waves Rate: bradycardia (55 bpm) - EKG Data When compared to previous EKG there are: no significant change Interpretation: unchanged when compared t (07/24/19) - Radiology Data Radiology results: report reviewed, image reviewed interpreted by me: Chest x-ray does not show any acute process. There are no pleural effusions, obvious pneumonia and there is no pneumothorax. Abdominal x-ray shows nonspecific nonobstructive bowel gas CT abdomen pelvis w con INDICATION / CLINICAL INFORMATION: abd pain. TECHNIQUE: All CT scans at this location are performed using CT dose reduction for ALARA by means of automated exposure control. COMPARISON: 12/13/2018 FINDINGS: No acute disease is seen in either lower lung. ABDOMEN: The gallbladder, liver, spleen and pancreas are normal. 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 The diffuse kidney is in the left renal fossa. No hydronephrosis or urinary calculi. Small bowel is normal. No mesenteric or retroperitoneal adenopathy. Adrenal glands are normal. A small fat-containing umbilical hernia is identified. Pelvis: The appendix is normal. There are no fluid collections or inflammatory changes in the pelvis. No acute colon abnormality. Review of skeletal structures show thoracolumbar scol iosis and left hip dysplasia. IMPRESSION: 1. No acute abdominal or pelvic abnormality. 2. Small fat-containing umbilical hernia. LIMITED RUQ ABDOMINAL ULTRASOUND INDICATION: upper abd pain. COMPARISON: No relevant prior imaging study available. FINDINGS: Pancreas: Visualized portions show no significant abnormality. Abdominal Aorta: No significant abnormality. IVC: No significant abnormality. Liver: Normal. Gallbladder: Normal. Sonographic Wilson's sign: Not performed. Bile ducts: Normal. Common bile duct measures 2 mm. Free fluid: None. Additional Findings: None. IMPRESSION: 1. Normal exam. - Medical Decision Making This patient presents to the emergency department with a complaint of some upper abdominal pain with radiation to the chest that has been going on intermittently since she was seen here in July 24. At that time there was some gallbladder sludge found and it was thought that her symptoms were secondary to biliary colic. The ultrasound was repeated today without any signs of gallbladder sludge, cholelithiasis, or cholecystitis. A chest x-ray was done that does not show any pneumonia, pneumothorax, focal consolidation, pleural effusions, or any other acute process. Abdominal x-ray shows nonspecific nonobstructive bowel gas. The patient's labs have been unremarkable including CBC, metabolic panel, LFTs, lipase, urinalysis, troponins 2 and a negative d-dimer. Patient also had a CT scan of the abdomen and pelvis with IV contrast that only shows a fat- containing hernia but otherwise no acute abdominal or pelvic pathology. Etiology of the patient's pain has not definitively been found but she does not appear to have any emergent medical condition that requires admission or immediate intervention. The patient's information has been sent to [facility] cardiology as part of our chest pain protocol for a heart score less than 2 for close outpatient follow-up within the next 48 hours. The patient has a heart score of 0 and a RAUL score of 1, if her pain is considered angina. She has also been given a referral for gastroenterology to follow up regarding the abdominal pain. The patient has been instructed to return to the emergency Department with any worsening of her symptoms or any acute distress. - Differential Diagnosis cholelithiasis, cholecystitis, VA, PE, pneumonia Critical Care Time: No Critical care attestation.: If time is entered above; I have spent that time in minutes in the direct care of this critically ill patient, excluding procedure time. ED Disposition Clinical Impression: Intermittent chest pain, Upper abdominal pain Disposition: DC-01 TO HOME OR SELFCARE Is pt being admited?: No Condition: Stable Instructions: Chest Pain (ED), Abdominal Pain (ED) Additional Instructions: Please follow-up with a primary care physician in the next few days. I have sent your contact information to the [facility] and someone from this office should be contacting you shortly for an outpatient follow-up appointment in the next few days. I have also given you a referral for a local motorsports technician, Dr. Lopez, to follow up regarding your abdominal pain. Return to the emergency Department with any worsening of your symptoms or any acute distress. Prescriptions: Famotidine [Pepcid] 20 mg PO BID #20 tablet Ondansetron [Zofran ODT TAB] 4 mg PO Q8HR PRN #14 tab.rapdis PRN Reason: Nausea Referrals: PRIMARY CARE,MD [Primary Care Provider] - 2-3 Days [facility] [Provider Group] - 2-3 Days NEIL LOPEZ MD [Staff Physician] - 2-3 Days Time of Disposition: 03:19 Print Language: SURINAMESE
[2019-08-08 23:12] LABS: Basophils # (Auto) 0.1 K/mm3 (0.0-0.1); Basophils % (Auto) 0.8 % (0.0-1.8); Eosinophils # (Auto) 0.1 K/mm3 (0.0-0.4); Eosinophils % (Auto) 1.7 % (0.0-4.3); Hematocrit 34.2 % (30.3-42.9); Hemoglobin 11.5 gm/dl (10.1-14.3); Lymphocytes # (Auto) 2.6 K/mm3 (1.2-5.4); Lymphocytes % (Auto) 35.7 % (13.4-35.0); Mean Corpuscular HGB Conc 34 % (30-34); Mean Corpuscular Volume 87 fl (79-97); Monocytes # (Auto) 0.7 K/mm3 (0.0-0.8); Platelet Count 265 K/mm3 (140-440); Red Blood Count 3.94 M/mm3 (3.65-5.03); Red Cell Distribution Width 14.1 % (13.2-15.2)
--- NOTE | 2019-08-08 23:30 | Ultrasound Report ---
LIMITED RUQ ABDOMINAL ULTRASOUND INDICATION: upper abd pain. COMPARISON: No relevant prior imaging study available. FINDINGS: Pancreas: Visualized portions show no significant abnormality. Abdominal Aorta: No significant abnormality. IVC: No significant abnormality. Liver: Normal. Gallbladder: Normal. Sonographic Wilson's sign: Not performed. Bile ducts: Normal. Common bile duct measures 2 mm. Free fluid: None. Additional Findings: None. IMPRESSION: 1. Normal exam. Signer Name: Chaparro Lowe MD Signed: 08/08/2019 11:26 PM Workstation Name: [id number]
[2019-08-09 00:10] LABS: Albumin 3.9 g/dL (3.9-5)
--- NOTE | 2019-08-09 00:21 | XRay Report ---
ABDOMEN, 2 VIEWS 08/09/2019 INDICATION / CLINICAL INFORMATION: abd pain, CP. COMPARISON: None available. FINDINGS: Intestinal gas is identified in both large and small bowel without significant distention. No pneumoperitoneum. Thoracolumbar scoliosis and left hip deformity are noted. Signer Name: Chaparro Lowe MD Signed: 08/09/2019 12:17 AM Workstation Name: [id number]
--- NOTE | 2019-08-09 00:22 | XRay Report ---
CHEST 2 VIEWS INDICATION / CLINICAL INFORMATION: Chest Pain. COMPARISON: None available. FINDINGS: SUPPORT DEVICES: None. HEART / MEDIASTINUM: No significant abnormality. LUNGS / PLEURA: No significant pulmonary or pleural abnormality. No pneumothorax. ADDITIONAL FINDINGS: Thoracolumbar scoliosis. IMPRESSION: 1. No acute findings. Signer Name: Chaparro Lowe MD Signed: 08/09/2019 12:17 AM Workstation Name: [id number]
[2019-08-09 00:33] LABS: Alanine Aminotransferase 11 units/L (7-56); BUN/Creatinine Ratio 35; Blood Urea Nitrogen 14 mg/dL (7-17); Calcium 8.6 mg/dL (8.4-10.2); Hemolysis Index 8
[2019-08-09] MEDS ORDERED: PEPCID IV ONE (00:43)
[2019-08-09] MEDS ORDERED: MORPHINE IV ONE (00:43)
--- NOTE | 2019-08-09 02:30 | Cat Scan Report ---
CT abdomen pelvis w con INDICATION / CLINICAL INFORMATION: abd pain. TECHNIQUE: All CT scans at this location are performed using CT dose reduction for ALARA by means of automated e xposure control. COMPARISON: 12/13/2018 FINDINGS: No acute disease is seen in either lower lung. ABDOMEN: The gallbladder, liver, spleen and pancreas are normal. 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 The diffuse kidney is in the left renal fossa. No hydronephrosis or urinary calculi. Small bowel is normal. No mesenteric or retroperitoneal adenopathy. Adrenal glands are normal. A small fat-containing umbilical hernia is identified. Pelvis: The appendix is normal. There are no fluid collections or inflammatory changes in the pelvis. No acute colon abnormality. Review of skeletal structures show thoracolumbar scoliosis and left hip dysplasia. IMPRESSION: 1. No acute abdominal or pelvic abnormality. 2. Small fat-containing umbilical hernia. Signer Name: Chaparro Lowe MD Signed: 08/09/2019 2:25 AM Workstation Name: [id number]
[2019-08-09 03:29] LABS: Bilirubin,Urine NEG (Negative); Blood,Urine NEG (Negative); Color,Urine Straw (Yellow); Mucus,Urine FEW /HPF; Protein,Urine <15 mg/dL mg/dL (Negative); RBC,Urine < 1.0 /HPF (0.0-6.0); Urobilinogen,Urine < 2.0 mg/dL (<2.0)
[2019-08-09 03:34] VITALS: BP 113/56
== END 2019-08-09 04:01 | disposition home or self-care (01) ==
LOC: ED 20:55
DX: R10.9 Unspecified abdominal pain (principal); R07.89 Other chest pain; Z98.51 Tubal ligation status; Z79.899 Other long term (current) drug therapy
CPT/HCPCS: 36415; 71046; 74019; 74177; 76705; 80053; 81001; 83690; 84484; 84703; 85025; 85379; 93005; 93010; 96374; 96375; 96376; 99285; J2270; J2405; J7030; Q9967

== ENCOUNTER 2020-06-16 11:55 | Emergency (ER) | payer SELFPAY ==
[2020-06-16 12:57] LABS: Bacteria,Urine 1+ /HPF (Negative); Bilirubin,Urine NEG (Negative); Blood,Urine NEG (Negative); Color,Urine Yellow (Yellow); Mucus,Urine FEW /HPF; Protein,Urine <15 mg/dL mg/dL (Negative); Urobilinogen,Urine < 2.0 mg/dL (<2.0)
--- NOTE | 2020-06-16 13:21 | Event Note ---
ED Screening Note Date of service: 06/16/20 Time: 13:20 ED Screening Note: Patient presented to emerge department with multiple complaints including left- sided lower back pain that radiates up into the left side of her abdomen and left side of her chest. She also reports she has been having intermittent headaches and dizziness. She reports she was here 2 days ago with similar complaints and was treated with medications for back pain but it did not relieve. States the back pain is aggravated by movement. This initial assessment/diagnostic orders/clinical plan/treatment(s) is/are subject to change based on patients health status, clinical progression and re- assessment by fellow clinical providers in the ED. Further treatment and workup at subsequent clinical providers discretion. Patient/guardian urged not to elope from the ED as their condition may be serious if not clinically assessed and managed. Initial orders include: CBC, CMP, troponin, EKG, urinalysis
[2020-06-16 13:53] LABS: Basophils % (Auto) 0.7 % (0.0-1.8); Eosinophils # (Auto) 0.1 K/mm3 (0.0-0.4); Eosinophils % (Auto) 1.7 % (0.0-4.3); Hematocrit 39.2 % (30.3-42.9); Lymphocytes # (Auto) 2.9 K/mm3 (1.2-5.4); Mean Corpuscular HGB Conc 33 % (30-34); Mean Corpuscular Volume 85 fl (79-97); Monocytes # (Auto) 0.5 K/mm3 (0.0-0.8); Monocytes % (Auto) 7.6 % (0.0-7.3); Platelet Count 263 K/mm3 (140-440); Red Cell Distribution Width 14.4 % (13.2-15.2)
[2020-06-16 14:39] LABS: Alanine Aminotransferase 20 units/L (7-56); Albumin 4.4 g/dL (3.9-5); Blood Urea Nitrogen 8 mg/dL (7-17); Calcium 9.1 mg/dL (8.4-10.2); Hemolysis Index 21
[2020-06-16 14:42] LABS: BUN/Creatinine Ratio 20
--- NOTE | 2020-06-16 16:18 | Emergency Department Report ---
ED General Adult HPI - General Chief complaint: Back Pain/Injury Stated complaint: LEFT ARM PAIN, HEADACHE Time Seen by Provider: 06/16/20 14:55 Source: patient Mode of arrival: Ambulatory Limitations: No Limitations - History of Present Illness Initial comments: 39-year-old female patient presents with continued left lower back pain radiating down her left leg. Patient was seen here 2 days ago with similar complaints including dizziness and chest pain; at that time patient had a full work-up performed. She states that the medication prescribed for her is not helping with her pain. Patient's pain has been chronic for many months and she has had a recent extensive work-up for her overall chronic pain-please see Dr. Pereyra's note from 06/14/2020. She was noted to have significant scoliosis on her x-ray and states she has not followed up with a spinal specialist. She rates her current pain as a 10/10 in severity and denies any loss of bladder/bowel control, loss of sensation/weakness in her limbs, or changes in her ambulation. Patient has a chronic antalgic gait favoring the left leg. She does also endorse that she had an episode of dizziness yesterday and that the pain radiates from her leg into her chest, however she denies this being any thing new and states it has been chronic for many months. She denies any shortness of breath, dizziness, headache, or chest pain at this time - Related Data Previous Rx's Medication Instructions Recorded Last Taken Type Amoxicillin [Amoxicillin TAB] 875 mg PO BID 10 Days tablet 01/02/14 Unknown Rx HYDROcodone/APAP 5-325 [[place] 1 each PO Q6HR PRN #10 tablet 01/02/14 Unknown Rx 5-325 mg TAB] Ketorolac [Toradol] 10 mg PO Q6H PRN #10 tablet 12/13/18 Unknown Rx Nitrofurantoin Monohyd/M-Cryst 100 mg PO BID #14 capsule 12/13/18 Unknown Rx [Macrobid 100 mg Capsule] Dicyclomine [Bentyl] 20 mg PO QID #10 tablet 07/24/19 Unknown Rx HYDROcodone/APAP 5-325 [[place] 1 each PO Q6HR PRN #14 tablet 07/24/19 Unknown Rx 5/325] Famotidine [Pepcid] 20 mg PO BID #20 tablet 08/09/19 Unknown Rx Ondansetron [Zofran ODT TAB] 4 mg PO Q8HR PRN #14 tab.rapdis 08/09/19 Unknown Rx Famotidine [Pepcid] 20 mg PO BID #20 tablet 06/09/20 Unknown Rx Ibuprofen [Motrin 600 MG tab] 600 mg PO Q8H PRN #20 tablet 06/09/20 Unknown Rx Ondansetron [Zofran ODT TAB] 4 mg PO Q8HR #10 tab.rapdis 06/09/20 Unknown Rx traMADoL [Ultram 50 MG tab] 50 mg PO Q6HR PRN #20 tablet 06/09/20 Unknown Rx Acetaminophen/Codeine [Tylenol 1 tab PO Q8H PRN #10 tab 06/16/20 Unknown Rx /Codeine # 3 tab] Diclofenac Sodium 50 mg PO TID PRN #21 tablet.dr 06/16/20 Unknown Rx methOCARBAMOL [Robaxin TAB] 1,500 mg PO Q8H PRN #30 tablet 06/16/20 Unknown Rx Allergies Allergy/AdvReac Type Severity Reaction Status Date / Time No Known Allergies Allergy Verified 12/13/18 11:19 ED Review of Systems ROS: Stated complaint: LEFT ARM PAIN, HEADACHE Other details as noted in HPI Constitutional: denies: chills, diaphoresis, fever, malaise, weakness Respiratory: denies: cough, shortness of breath Cardiovascular: denies: chest pain Gastrointestinal: denies: abdominal pain, nausea, vomiting Musculoskeletal: back pain Neurological: denies: headache, weakness, numbness, paresthesias ED Past Medical Hx - Past Medical History Previous Medical History?: No - Surgical History Past Surgical History?: Yes Additional Surgical History: x 3, tubaligation - Social History Smoking Status: Never Smoker - Medications Home Medications: Home Medications Medication Instructions Recorded Confirmed Last Taken Type Amoxicillin [Amoxicillin TAB] 875 mg PO BID 10 Days tablet 01/02/14 Unknown Rx HYDROcodone/APAP 5-325 [[place] 1 each PO Q6HR PRN #10 tablet 01/02/14 Unknown Rx 5-325 mg TAB] Ketorolac [Toradol] 10 mg PO Q6H PRN #10 tablet 12/13/18 Unknown Rx Nitrofurantoin Monohyd/M-Cryst 100 mg PO BID #14 capsule 12/13/18 Unknown Rx [Macrobid 100 mg Capsule] Dicyclomine [Bentyl] 20 mg PO QID #10 tablet 07/24/19 Unknown Rx HYDROcodone/APAP 5-325 [[place] 1 each PO Q6HR PRN #14 tablet 07/24/19 Unknown Rx 5/325] Famotidine [Pepcid] 20 mg PO BID #20 tablet 08/09/19 Unknown Rx Ondansetron [Zofran ODT TAB] 4 mg PO Q8HR PRN #14 tab.rapdis 08/09/19 Unknown Rx Famotidine [Pepcid] 20 mg PO BID #20 tablet 06/09/20 Unknown Rx Ibuprofen [Motrin 600 MG tab] 600 mg PO Q8H PRN #20 tablet 06/09/20 Unknown Rx Ondansetron [Zofran ODT TAB] 4 mg PO Q8HR #10 tab.rapdis 06/09/20 Unknown Rx traMADoL [Ultram 50 MG tab] 50 mg PO Q6HR PRN #20 tablet 06/09/20 Unknown Rx Acetaminophen/Codeine [Tylenol 1 tab PO Q8H PRN #10 tab 06/16/20 Unknown Rx /Codeine # 3 tab] Diclofenac Sodium 50 mg PO TID PRN #21 tablet.dr 06/16/20 Unknown Rx methOCARBAMOL [Robaxin TAB] 1,500 mg PO Q8H PRN #30 tablet 06/16/20 Unknown Rx ED Physical Exam - General Limitations: No Limitations General appearance: alert, in no apparent distress - Head Head exam: Present: atraumatic, normocephalic - Eye Eye exam: Present: normal appearance. Absent: scleral icterus - Neck Neck exam: Present: normal inspection, full ROM - Respiratory Respiratory exam: Present: normal lung sounds bilaterally. Absent: respiratory distress - Cardiovascular Cardiovascular Exam: Present: regular rate, normal rhythm. Absent: systolic murmur, diastolic murmur, rubs, gallop - GI/Abdominal GI/Abdominal exam: Present: soft. Absent: distended - Extremities Exam Extremities exam: Present: normal inspection - Back Exam Back exam: Present: full ROM, paraspinal tenderness (Left lower lumbar sacroiliac tenderness to palpation). Absent: vertebral tenderness - Neurological Exam Neurological exam: Present: alert, oriented X3, abnormal gait (Patient has a limp that favors to the left leg). Absent: motor sensory deficit - Expanded Neurological Exam Expanded Sensory exam: Lower Extremity Light Touch: Normal Motor strength exam: RLE: 5, LLE: 5 - Psychiatric Psychiatric exam: Present: normal affect, normal mood - Skin Skin exam: Present: warm, dry, intact, normal color. Absent: rash, cyanosis ED Course Vital Signs 06/16/20 06/16/20 12:29 16:25 Temperature 98.0 F 98.7 F Pulse Rate 62 86 Respiratory 18 14 Rate Blood Pressure 120/76 Blood Pressure 123/82 [Left] O2 Sat by Pulse 98 100 Oximetry ED Medical Decision Making - Lab Data Result diagrams: 06/16/20 13:39 06/16/20 13:39 Lab Results 06/16/20 06/16/20 06/16/20 Range/Units 12:40 13:39 13:39 WBC 6.2 (4.5-11.0) K/mm3 RBC 4.60 (3.65-5.03) M/mm3 Hgb 13.0 (10.1-14.3) gm/dl Hct 39.2 (30.3-42.9) % MCV 85 (79-97) fl MCH 28 (28-32) pg MCHC 33 (30-34) % RDW 14.4 (13.2-15.2) % Plt Count 263 (140-440) K/mm3 Lymph % (Auto) 46.0 H (13.4-35.0) % [place] % (Auto) 7.6 H (0.0-7.3) % Eos % (Auto) 1.7 (0.0-4.3) % Baso % (Auto) 0.7 (0.0-1.8) % Lymph # 2.9 (1.2-5.4) K/mm3 [place] # 0.5 (0.0-0.8) K/mm3 Eos # 0.1 (0.0-0.4) K/mm3 Baso # 0.0 (0.0-0.1) K/mm3 Seg Neutrophils % 44.0 (40.0-70.0) % Seg Neutrophils # 2.7 (1.8-7.7) K/mm3 Sodium 137 (137-145) mmol/L Potassium 4.2 (3.6-5.0) mmol/L Chloride 100.3 (98-107) mmol/L Carbon Dioxide 23 (22-30) mmol/L Anion Gap 18 mmol/L BUN 8 (7-17) mg/dL Creatinine 0.4 L (0.6-1.2) mg/dL Estimated GFR > 60 ml/min BUN/Creatinine Ratio 20 % Glucose 84 (65-100) mg/dL Calcium 9.1 (8.4-10.2) mg/dL Total Bilirubin 0.70 (0.1-1.2) mg/dL AST 23 (5-40) units/L ALT 20 (7-56) units/L Alkaline Phosphatase 108 (35-129) units/L Troponin T < 0.010 (0.00-0.029) ng/mL Total Protein 7.6 (6.3-8.2) g/dL Albumin 4.4 (3.9-5) g/dL Albumin/Globulin Ratio 1.4 % Urine Color Yellow (Yellow) Urine Turbidity Clear (Clear) Urine pH 7.0 (5.0-7.0) Ur Specific [place] 1.011 (1.003-1.030) Urine Protein <15 mg/dl (Negative) mg/dL Urine Glucose (UA) Neg (Negative) mg/dL Urine Ketones Neg (Negative) mg/dL Urine Blood Neg (Negative) Urine Nitrite Neg (Negative) Urine Bilirubin Neg (Negative) Urine Urobilinogen < 2.0 (<2.0) mg/dL Ur Leukocyte Esterase Neg (Negative) Urine WBC (Auto) 2.0 (0.0-6.0) /HPF Urine RBC (Auto) 3.0 (0.0-6.0) /HPF U Epithel Cells (Auto) 3.0 (0-13.0) /HPF Urine Bacteria (Auto) 1+ (Negative) /HPF Urine Mucus Few /HPF - Medical Decision Making 39-year-old female patient presents with continued left lower back pain radiating down her left leg. Patient was seen here 2 days ago with similar complaints including dizziness and chest pain; at that time patient had a full work-up performed. She states that the medication prescribed for her is not helping with her pain. Patient's pain has been chronic for many months and she has had a recent extensive work-up for her overall chronic pain-please see Dr. Pereyra's note from 06/14/2020. She was noted to have significant scoliosis on her x-ray and states she has not followed up with a spinal specialist. She rates her current pain as a 10/10 in severity and denies any loss of bladder/bowel control, loss of sensation/weakness in her limbs, or changes in her ambulation. Patient has a chronic antalgic gait favoring the left leg. Discussed in detail need for patient to follow-up with a spinal specialist for further evaluation and treatment. Given patient's pain level, prescription given for Tylenol No. 3 and Robaxin along with diclofenac. Vitals are normal she is well-appearing and stable for discharge home. Strict return precautions were discussed in detail with patient who verbalizes understanding. Critical care attestation.: If time is entered above; I have spent that time in minutes in the direct care of this critically ill patient, excluding procedure time. ED Disposition Clinical Impression: Scoliosis Qualifiers: Idiopathic scoliosis type: other Spinal region: thoracolumbar Chronic back pain Qualifiers: Back pain location: low back pain Back pain laterality: left Low back pain with sciatica Qualifiers: Chronicity: chronic Back pain laterality: left Sciatica laterality: sciatica of left side Qualified Code(s): M54.42 - Lumbago with sciatica, left side; G89.29 - Other chronic pain Disposition: DC-01 TO HOME OR SELFCARE Is pt being admited?: No Condition: Stable Instructions: Sciatica (ED), Lumbar Radiculopathy (ED) Prescriptions: Diclofenac Sodium 50 mg PO TID PRN #21 tablet.dr PRN Reason: pain methOCARBAMOL [Robaxin TAB] 1,500 mg PO Q8H PRN #30 tablet PRN Reason: muscle tightness/spasm Acetaminophen/Codeine [Tylenol /Codeine # 3 tab] 1 tab PO Q8H PRN #10 tab PRN Reason: Pain , Severe (7-10) Referrals: CAROL WIGGINS MD [Staff Physician] - 3-5 Days NIKKI TORREZ MD [Staff Physician] - 2-3 Days Print Language: MOLDOVAN
[2020-06-16 16:27] VITALS: BP 123/82
== END 2020-06-16 16:34 | disposition home or self-care (01) ==
LOC: ED 11:55
DX: M54.42 Lumbago with sciatica, left side (principal); M41.9 Scoliosis, unspecified; G89.29 Other chronic pain; Z79.899 Other long term (current) drug therapy; Z98.890 Other specified postprocedural states; Z98.51 Tubal ligation status
CPT/HCPCS: 36415; 80053; 81001; 84484; 85025; 93005